=== PATIENT | female | born 1985 | race Caucasian/White ===

== ENCOUNTER 2020-09-19 14:56 | Emergency (ER) | payer OTHER ==
[~2020-09-19 14:56] MED LIST: COLACE100 MG PO; DEXILANT30 MG PO; FERROUS SULFAT325 MG PO; HUMALOG 10100 UNITS/ SC; LANTUS100 UNIT/1 SC; METFORMIN HCL1000 MG PO; METOPROLOL SUCC25 MG PO; NAPROSYN PO; NORCO 7.5-3251 EACH PO; PRENATA CHEWAB1 EACH PO; PRENATAL VITAM1 EAC3 PO; PROCARDIA 10 MG10 MG PO; SYNTHROID50 MCG PO; ZOFRAN8 MG PO
[2020-09-19] MEDS ORDERED: IBUPROFEN600 MG PO (17:16)
== END 2020-09-19 18:53 | disposition home or self-care (01) ==
LOC: ER1 14:56
DX: S60.221A Contusion of right hand, initial encounter (principal); E11.9 Type 2 diabetes mellitus without complications; I10 Essential (primary) hypertension; F17.210 Nicotine dependence, cigarettes, uncomplicated; W23.0XXA Caught, crushed, jammed, or pinched between moving objects, initial encounter
CPT/HCPCS: 73130; 99283